=== PATIENT | female | born 1965 | race Caucasian/White ===

== ENCOUNTER 2016-04-04 01:44 | Emergency (ER) | payer MEDICAID, OTHER ==
[~2016-04-04] VITALS: Ht 167.6 cm; Wt 72.7 kg
[~2016-04-04 01:44] MED LIST: ALPR0.5T8 PO; FERR-89 PO; FLUO-191 PO; NICO21T TD; TRAZ150 PO
[2016-04-04] MEDS ORDERED: CYCL10 PO (01:59)
[2016-04-04] MEDS ORDERED: OMEP20 PO (01:59)
[2016-04-04] MEDS ORDERED: TraMADol HCL 50 MG TABLET PO ONE (04:15)
[2016-04-04] MEDS ORDERED: KETOROLAC TROMETHAMINE 60 MG/2 ML VIAL IM ONE (04:15)
[2016-04-04 04:31] VITALS: BP 100/62
== END 2016-04-04 04:33 | disposition home or self-care (01) ==
LOC: EMS 01:45
DX: M70.71 Other bursitis of hip, right hip (principal); M16.11 Unilateral primary osteoarthritis, right hip; M54.5 Low back pain; J45.909 Unspecified asthma, uncomplicated; F17.210 Nicotine dependence, cigarettes, uncomplicated
CPT/HCPCS: 73502; 99284; J1885

== ENCOUNTER 2017-08-20 17:55 | Inpatient (IN) | payer MEDICAID, OTHER ==
[~2017-08-20] VITALS: Ht 167.6 cm; Wt 81.2 kg
[~2017-08-20 17:55] MED LIST changes: -ALPR0.5T8 PO; +CYCL10 PO; +OMEP20 PO
[2017-08-20] MEDS ORDERED: PSEU60 PO (19:41)
[2017-08-20] MEDS ORDERED: LAMO100 PO (19:42)
[2017-08-20] MEDS ORDERED: LOSA25TA21 PO (19:42)
[2017-08-20] MEDS ORDERED: LURA40 PO (19:42)
[2017-08-20] MEDS ORDERED: CETI-290 PO (19:42)
[2017-08-20 20:18] LABS: HEMATOCRIT 26.2 % (36-46); HEMOGLOBIN 8.2 g/dL (12.0-16.0); MEAN CORPUSCULAR HEMOGLOBIN 20.9 pg (26.0-34.0); MEAN CORPUSCULAR HGB CONC 31.5 G/dL (31.0-37.0); MEAN CORPUSCULAR VOLUME 66 fL (80-100); PLATELET COUNT (AUTO) 351 K/uL (150-450); RED BLOOD CELL COUNT(AUTO) 3.94 MIL/uL (4.00-5.20); RED CELL DISTRIBUTION WIDTH 21.8 % (11.5-14.5)
[2017-08-20 20:32] LABS: ANION GAP 6 mmol/L (8-16); CALCIUM, TOTAL 8.5 mg/dL (8.8-10.5); CARBON DIOXIDE 26 mmol/L (22-29); CHLORIDE 106 mmol/L (98-107); GLOMERULAR FILTR. RATE CALC > 60 mL/min (>60); GLUCOSE,RANDOM 89 mg/dL (70-110); POTASSIUM 4.3 mmol/L (3.5-5.1); SODIUM SERUM 138 mmol/L (136-145); UREA NITROGEN, BLOOD 8 mg/dL (7-18)
[2017-08-20 20:36] LABS: AMPHET/METH SCREEN,URINE NEGATIVE (NEGATIVE); BARBITURATE SCREEN, URINE NEGATIVE (NEGATIVE); BENZODIAZEPINES SCREEN,URINE NEGATIVE (NEGATIVE); CANNABINOID SCREEN,URINE POSITIVE (NEGATIVE); COCAINE SCREEN,URINE NEGATIVE (NEGATIVE); METHADONE SCREEN, URINE NEGATIVE (NEGATIVE); OPIATE SCREEN,URINE NEGATIVE (NEGATIVE)
[2017-08-20 20:38] LABS: ALANINE AMINOTRANSFERASE 25 U/L (12-78); ALBUMIN 3.5 g/dL (3.4-5.0); ALKALINE PHOSPHATASE 99 U/L (46-116); ASPARTATE AMINOTRANSFERASE 26 U/L (15-37); BILIRUBIN,TOTAL 0.3 mg/dL (0.1-1.0); TOTAL PROTEIN, SERUM 6.5 g/dL (6.4-8.2)
[2017-08-20 20:39] LABS: PHENCYCLIDINE SCREEN,URINE NEGATIVE (NEGATIVE)
[2017-08-20 20:44] LABS: BAND NEUTROPHILS % (MANUAL) 2 % (0-5); EOSINOPHILS % (MANUAL) 3 % (1-6); LYMPHOCYTES % (MANUAL) 45 % (22-44); MONOCYTES % (MANUAL) 6 % (2-9); SEGMENTED NEUTROPHILS % 44 % (40-70)
[2017-08-20] MEDS ORDERED: DiphenhydrAMINE HCL 50 MG/ML VIAL IM ONE (21:45)
[2017-08-20] MEDS ORDERED: LORazepam 2 MG/ML VIAL IM ONE (21:45)
[2017-08-20] MEDS ORDERED: HALOPERIDOL LACTATE 5 MG/ML VIAL IM ONE (21:45)
[2017-08-20 23:42] LABS: CHOL/HDL RATIO 2.4 (3.9-5.7); CHOLESTEROL 177 mg/dL (131-200); FREE T4 (FREE THYROXINE) 0.89 ng/dL (0.76-1.46); HDL CHOLESTEROL 73 mg/dL (40-60); LDL CHOL (CALC.) 93 mg/dL (0-130); THYROID STIMULATING HORMONE 1.31 uIU/mL (0.36-3.74); TRIGLYCERIDES 54 mg/dL (15-150)
[2017-08-21] MEDS ORDERED: IBUPROFEN 800 MG TABLET PO ONE (00:15)
[2017-08-21] MEDS: LORazepam 2 MG TABLET PO PRN ×2 (11:01→17:33)
[2017-08-21] MEDS ORDERED: IBUPROFEN 600 MG TABLET PO ONE (11:45)
[2017-08-21 16:18] LABS: GLUCOMETER DEV NAME(LOC) BV3S 2; GLUCOSE,POINT OF CARE 135 MG/DL (70-110)
[2017-08-21 17:15] VITALS: BP 123/67
[2017-08-21] MEDS ORDERED: PSEUDOEPHEDRINE HCL 60 MG TABLET PO PRN (18:00)
[2017-08-21] MEDS ORDERED: ACETAMINOPHEN 325 MG TABLET PO PRN (18:00)
[2017-08-21] MEDS: OLANZapine 5 MG TABLET PO SCH (20:22)
[2017-08-22 02:22] VITALS: BP 113/72
[2017-08-22] MEDS: LORazepam 2 MG TABLET PO PRN ×3 (02:25→16:18)
[2017-08-22] MEDS: ZOLPIDEM TARTRATE 10 MG TABLET PO PRN ×2 (02:25→22:06)
[2017-08-22] MEDS: FLUoxetine HCL 20 MG CAPSULE PO SCH (08:14)
[2017-08-22] MEDS: OMEPRAZOLE 20 MG CAPSULE PO SCH (08:14)
[2017-08-22] MEDS: IBUPROFEN 400 MG TABLET PO PRN (08:14)
[2017-08-22] MEDS: CETIRIZINE HCL 10 MG TABLET PO SCH (08:15)
[2017-08-22] MEDS: NICOTINE 14 MG/24 HOUR PATCH TD SCH (08:15)
[2017-08-22] MEDS: LOSARTAN POTASSIUM 25 MG TABLET PO SCH (08:15)
[2017-08-22 08:22] VITALS: BP 131/55
[2017-08-22] MEDS: LamoTRIgine 100 MG TABLET PO SCH (10:54)
[2017-08-22] MEDS ORDERED: PERMETHRIN 5% 60 GM CREAM TP ONE (14:15)
[2017-08-22] MEDS ORDERED: DOCUSATE SODIUM 100 MG CAPSULE PO PRN (14:30)
[2017-08-22] MEDS ORDERED: MAGNESIUM HYDROXIDE SUSPENSION 30 ML UDCUP PO PRN (14:30)
[2017-08-22] MEDS ORDERED: MAG HYDROX/AL HYDROX/SIMETH ES 30 ML SUSPENSION UDCUP PO PRN (14:30)
[2017-08-22] MEDS ORDERED: PETROLATUM,WHITE 71 GM JELLY TP PRN (14:30)
[2017-08-22] MEDS ORDERED: ONDANSETRON HCL 4 MG TABLET PO PRN ×2 (14:30)
[2017-08-22] MEDS ORDERED: ALBUTEROL SULFATE HFA 90 MCG/PUFF 8 GM INHALER IH PRN (14:30)
[2017-08-22] MEDS: FERROUS SULFATE 325 MG EC TABLET PO SCH ×2 (16:18→20:32)
[2017-08-22 16:42] VITALS: BP 106/66
[2017-08-22] MEDS: OLANZapine 5 MG TABLET PO SCH (20:32)
[2017-08-23 00:46] VITALS: BP 117/72
[2017-08-23] MEDS: IBUPROFEN 400 MG TABLET PO PRN ×3 (03:30→21:18)
[2017-08-23] MEDS: LORazepam 2 MG TABLET PO PRN ×2 (04:36→16:52)
[2017-08-23] MEDS: FERROUS SULFATE 325 MG EC TABLET PO SCH ×4 (06:32→20:35)
[2017-08-23] MEDS: FLUoxetine HCL 20 MG CAPSULE PO SCH (08:10)
[2017-08-23] MEDS: CETIRIZINE HCL 10 MG TABLET PO SCH (08:10)
[2017-08-23] MEDS: OMEPRAZOLE 20 MG CAPSULE PO SCH (08:10)
[2017-08-23] MEDS: NICOTINE 14 MG/24 HOUR PATCH TD SCH (08:10)
[2017-08-23] MEDS: LamoTRIgine 100 MG TABLET PO SCH (08:10)
[2017-08-23] MEDS: LOSARTAN POTASSIUM 25 MG TABLET PO SCH (08:10)
[2017-08-23 08:24] VITALS: BP 132/86
[2017-08-23 09:50] VITALS: BP 126/80
[2017-08-23 10:50] VITALS: BP 122/78
[2017-08-23 11:57] VITALS: BP 118/77
[2017-08-23 16:45] VITALS: BP 116/65
[2017-08-23] MEDS: BusPIRone HCL 5 MG TABLET PO SCH (16:52)
[2017-08-23] MEDS: OLANZapine 10 MG TABLET PO SCH (20:35)
[2017-08-23] MEDS: ZOLPIDEM TARTRATE 10 MG TABLET PO PRN (21:18)
[2017-08-24] VITALS (8 sets, daily range): BP systolic 93–119; BP diastolic 56–72
[2017-08-24] MEDS: LORazepam 2 MG TABLET PO PRN ×3 (00:40→14:19)
[2017-08-24] MEDS: FERROUS SULFATE 325 MG EC TABLET PO SCH ×4 (06:43→20:52)
[2017-08-24] MEDS: LOSARTAN POTASSIUM 25 MG TABLET PO SCH (09:00)
[2017-08-24] MEDS: FLUoxetine HCL 20 MG CAPSULE PO SCH (09:21)
[2017-08-24] MEDS: CETIRIZINE HCL 10 MG TABLET PO SCH (09:21)
[2017-08-24] MEDS: LamoTRIgine 100 MG TABLET PO SCH (09:21)
[2017-08-24] MEDS: OMEPRAZOLE 20 MG CAPSULE PO SCH (09:21)
[2017-08-24] MEDS: BusPIRone HCL 5 MG TABLET PO SCH ×3 (09:22→17:11)
[2017-08-24] MEDS: NICOTINE 14 MG/24 HOUR PATCH TD SCH (09:22)
[2017-08-24] MEDS: IBUPROFEN 400 MG TABLET PO PRN ×2 (09:51→14:19)
[2017-08-24] MEDS: HALOPERIDOL 5 MG TABLET PO PRN (13:46)
[2017-08-24] MEDS: ZOLPIDEM TARTRATE 10 MG TABLET PO PRN (20:52)
[2017-08-24] MEDS: OLANZapine 10 MG TABLET PO SCH (20:52)
[2017-08-25 02:30] VITALS: BP 113/78
[2017-08-25] MEDS: HALOPERIDOL 5 MG TABLET PO PRN ×2 (02:35→13:45)
[2017-08-25] MEDS: LORazepam 2 MG TABLET PO PRN ×3 (02:35→13:45)
[2017-08-25] MEDS: FERROUS SULFATE 325 MG EC TABLET PO SCH ×4 (06:47→20:13)
[2017-08-25 08:42] VITALS: BP 103/63
[2017-08-25] MEDS: BusPIRone HCL 5 MG TABLET PO SCH ×3 (09:00→16:29)
[2017-08-25] MEDS: OMEPRAZOLE 20 MG CAPSULE PO SCH (09:00)
[2017-08-25] MEDS: LamoTRIgine 100 MG TABLET PO SCH (09:00)
[2017-08-25] MEDS: FLUoxetine HCL 20 MG CAPSULE PO SCH (09:00)
[2017-08-25] MEDS: CETIRIZINE HCL 10 MG TABLET PO SCH (09:01)
[2017-08-25] MEDS: NICOTINE 14 MG/24 HOUR PATCH TD SCH (09:01)
[2017-08-25] MEDS: LOSARTAN POTASSIUM 25 MG TABLET PO SCH (09:01)
[2017-08-25 16:23] VITALS: BP 116/63
[2017-08-25] MEDS: IBUPROFEN 400 MG TABLET PO PRN (18:56)
[2017-08-25] MEDS: OLANZapine 10 MG TABLET PO SCH (20:13)
[2017-08-26 02:56] VITALS: BP 101/56
[2017-08-26 03:40] VITALS: BP 109/72
[2017-08-26] MEDS: HALOPERIDOL 5 MG TABLET PO PRN (03:45)
[2017-08-26] MEDS: LORazepam 2 MG TABLET PO PRN ×2 (03:45→08:33)
[2017-08-26] MEDS: FERROUS SULFATE 325 MG EC TABLET PO SCH (06:56)
[2017-08-26] MEDS: FLUoxetine HCL 20 MG CAPSULE PO SCH (08:32)
[2017-08-26] MEDS: BusPIRone HCL 5 MG TABLET PO SCH (08:32)
[2017-08-26] MEDS: OMEPRAZOLE 20 MG CAPSULE PO SCH (08:32)
[2017-08-26] MEDS: LamoTRIgine 100 MG TABLET PO SCH (08:32)
[2017-08-26] MEDS: LOSARTAN POTASSIUM 25 MG TABLET PO SCH (08:32)
[2017-08-26] MEDS: CETIRIZINE HCL 10 MG TABLET PO SCH (08:33)
[2017-08-26] MEDS: NICOTINE 14 MG/24 HOUR PATCH TD SCH (08:33)
[2017-08-26 08:36] VITALS: BP 117/76
[2017-08-26] MEDS ORDERED: FERR-89 PO (09:25)
[2017-08-26] MEDS ORDERED: FLUO-191 PO (09:28)
[2017-08-26] MEDS ORDERED: OLAN10TA3 PO (09:29)
[2017-08-26] MEDS ORDERED: BUSP5TAB20 PO (09:29)
== END 2017-08-26 09:55 | disposition home or self-care (01) | DRG 751 ==
LOC: EMS 17:55 → B3A 08-21 14:03
PROVIDERS: ADMIT Psychiatry & Neurology Psychiatry; ATTEND Psychiatry & Neurology Psychiatry
DX: F33.2 Major depressive disorder, recurrent severe without psychotic features (principal); G20 Parkinson's disease; R45.851 Suicidal ideations; B86 Scabies; I10 Essential (primary) hypertension; F17.210 Nicotine dependence, cigarettes, uncomplicated; F12.90 Cannabis use, unspecified, uncomplicated; D50.9 Iron deficiency anemia, unspecified; M54.5 Low back pain; G89.29 Other chronic pain; J45.909 Unspecified asthma, uncomplicated; K21.9 Gastro-esophageal reflux disease without esophagitis; Z78.1 Physical restraint status; Z91.5 Personal history of self-harm; Z98.84 Bariatric surgery status; Z79.899 Other long term (current) drug therapy; Z71.6 Tobacco abuse counseling; Z88.6 Allergy status to analgesic agent; Z88.5 Allergy status to narcotic agent; Z84.89 Family history of other specified conditions
CPT/HCPCS: 82728; 83036; 83540; 83550; 84439; 84443; 96372; 99285; G0480; J1200; J1630; J2060